=== PATIENT | male | born 1955 | race Caucasian/White ===

== ENCOUNTER 2016-11-13 08:13 | Day surgery (SDC) | payer BC ==
--- NOTE | 2016-11-12 10:25 | PCM.PREANE ---
Preanesthetic Assessment - ANESTHESIA/TRANSFUSION/FAMILY HX Anesthesia/Transfusion History: Prior Anesthesia Family History of Anesthesia Reaction: No - REVIEW OF SYSTEMS Constitutional: Reports: no symptoms ASSOCIATE EDITOR: Reports: no symptoms Respiratory: Reports: no symptoms Cardiovascular: Reports: no symptoms GI: Reports: no symptoms - PHYSICAL ASSESSMENT Height: 1.65 m Weight: 101.151 kg ASA Class: 2 Mental Status: alert & oriented x3 Dentition: Reports: normal dentition Respiratory Status: lungs clear to auscultation bilaterally Cardiovascular Status: regular rate & rhythm, normal S1, S2, no murmur - LAB Values: K+ pending - ALLERGIES Allergies/Adverse Reactions: Allergies Allergy/AdvReac Type Severity Reaction Status Date / Time No Known Allergies Allergy Verified 11/10/16 12:23 - BLOOD Blood Available: No - ANESTHESIA PLAN Preop Beta Evita: No Anesthesia Type Planned: general anesthesia, MAC - ACKNOWLEDGEMENTS Pt an appropriate candidate for the planned anesthesia: Yes Alternatives and risks of anesthesia discussed w pt/guardian: Yes Pt/Guardian understands and agree with anesthesia plan: Yes PreAnesthesia Questionnaire HEENT History: Reports: Other (see below) Other HEENT History: wears glasses/contacts Cardiovascular History: Reports: Hypertension Respiratory History: Reports: Sleep apnea Other Respiratory History: does not use CPAP Gastrointestinal History: Reports: GERD Genitourinary History: Reports: Renal calculus Psychiatric History: Reports: ADHD, Depression Endocrine/Metabolic History: Reports: Obesity/BMI 30+ - Past Surgical History Head Surgeries/Procedures: Reports: None Male Surgical History: Reports: Lithotripsy ([facility]) - SUBSTANCE USE Smoking Status *Q: Never Smoker Recreational Drug Use History: No - HOME MEDS Home Medications: Home Meds Benazepril/Hydrochlorothiazide [Lotensin Hct 20-12.5 mg Tablet] 1 tab PO DAILY 11/10/16 [History] Dextroamphetamine/Amphetamine [Adderall Xr 20 mg Capsule] 20 mg PO DAILY [History] Escitalopram Oxalate 20 mg PO DAILY 11/10/16 [History] Omeprazole 20 mg PO DAILY 11/10/16 [History] Zolpidem Tartrate 10 mg PO BEDTIME PRN 11/10/16 [History] amLODIPine [Norvasc] 5 mg PO DAILY 11/11/16 [History] - CURRENT (IN HOUSE) MEDS Current Meds: Current Medications Lactated Ringer's (Ringers, Lactated) 1,000 mls @ 125 mls/hr IV ASDIRECTED JO Cefazolin Sodium/Dextrose 2 gm (/ Premix) 50 mls @ 100 mls/hr IV ONETIME JO
[~2016-11-13 08:13] MED LIST: Bupivacaine 0.5% 30 ML SDV ONE; Lactated Ringers 1,000 ML IV SCH; ceFAZolin 1 GM Vial ONE; ceFAZolin 2 GM in Premix Bag 1 BAG IV SCH
[2016-11-13] MEDS ORDERED: Lidocaine 2% 5 ML SDV ONE (08:36)
[2016-11-13] MEDS ORDERED: Midazolam 1 MG/ML 2 ML SDV ONE (08:36)
[2016-11-13] MEDS ORDERED: Propofol 200 MG/20 ML SDV ONE (08:36)
[2016-11-13] MEDS ORDERED: fentaNYL 250 MCG/5 ML SDV ONE (08:37)
[2016-11-13] MEDS ORDERED: Rocuronium 10 MG/ML 10 ML Syringe ONE (08:38)
[2016-11-13] MEDS ORDERED: Ondansetron 4 MG/2 ML SDV ONE (08:38)
[2016-11-13] MEDS ORDERED: Neostigmine Methylsulfate 1 MG/ML 5 ML Syringe ONE (08:38)
[2016-11-13] MEDS ORDERED: ePHEDrine 50 MG/ML SDV ONE (10:13)
[2016-11-13] MEDS ORDERED: Ondansetron 4 MG/2 ML SDV IVPUSH PRN (10:52)
[2016-11-13] MEDS ORDERED: Morphine 10 MG/ML Syringe IVPUSH PRN (10:52)
--- NOTE | 2016-11-13 10:57 | PCM.OPNOTE ---
- General Post-Op/Procedure Note Date of Surgery/Procedure: 11/13/16 Operative Procedure(s): Repair incarcerated umbilical hernia w/ 4.3 cm Ventralex mesh Pre Op Diagnosis: Incarcerated umbilical hernia Post-Op Diagnosis: Same Anesthesia Technique: General ET tube (ASA II) Primary Surgeon: Robinson Villalba Management Scientist: Jess Bhat Fluid Replacement, Intraop: 1,000 EBL in mLs: 5 Condition: Good Free Text/Narrative:: Dictation [id number]
[2016-11-13] MEDS ORDERED: Lactated Ringers 1,000 ML IV SCH (11:00)
[2016-11-13] MEDS: fentaNYL 100 MCG/2 ML SDV IVPUSH PRN ×2 (11:25→11:30)
[2016-11-13] MEDS: Acetaminophen/HYDROcodone 325-5 MG Tab PO PRN ×2 (11:49→12:44)
--- NOTE | 2016-11-13 12:21 | OR ---
SURGEON: Robinson Villalba M.D. DATE OF PROCEDURE: 11/13/2016 OPERATION PERFORMED: Repair incarcerated umbilical hernia with 4.3 cm Ventralex mesh. DRENCHER: Dr. Bhat. ANESTHESIA: General endotracheal. ASA CLASSIFICATION: II. PREOPERATIVE DIAGNOSIS: Incarcerated umbilical hernia. POSTOPERATIVE DIAGNOSIS: Incarcerated umbilical hernia. ESTIMATED BLOOD LOSS: 5 mL. INTRAOPERATIVE FLUID REPLACEMENT: 1000 mL of crystalloid. DESCRIPTION OF PROCEDURE: The patient was taken to the operating room and placed on the operating table in the supine position. Time-out was called for appropriate identification of the patient and procedure. Thigh-high TEDs and sequential compression boots were placed. Following satisfactory attainment of general endotracheal anesthesia, the abdomen was prepped with DuraPrep solution and sterile drapes were applied. The skin just to the left of the umbilicus was infiltrated with 0.5% Marcaine solution. The skin incision was made and deepened through the subcutaneous tissue. We were able to circumferentially dissect the hernia sac without getting into this. Once that was accomplished, we did have to extend our fascial incision to total of about 1 cm to completely reduce the hernia sac and its contents. This was easily able to be done. The underlying fascia was then cleared for approximately 2 cm in all directions. A 4.3 cm Ventralex mesh was brought to the operating table and soaked in 1% Ancef solution. This was then placed in an underlay fashion and secured with multiple interrupted horizontal mattress 0 Ethibond sutures. All sutures were placed under direct vision and held with hemostats until the final suture had been placed. The sutures were then secured. The fascia was then reapproximated over the Ventralex mesh without difficulty. This was also done with interrupted 0 Ethibond sutures. Once this was done and sutures have been cut, the patient was given a Valsalva maneuver to 68 cm of water. The repair was solid. Wound was inspected for hemostasis and bleeding sites were electrocoagulated. The subcutaneous tissue was reapproximated with 3-0 Polysorb and the skin edges reapproximated with subcuticular 4-0 Monocryl. A sterile cotton ball was placed into the umbilicus. The wound was dressed with Steri-Strips and Tegaderm pad. Sponge, needle, and instrument counts were all correct. The patient tolerated the procedure well. Following emergence from anesthesia and extubation, he was taken to recovery room in stable condition. ANDJANE / ANSHUL /[id number]
--- NOTE | 2016-11-13 12:45 | PCM.POSTAN ---
POST ANESTHESIA ASSESSMENT - MENTAL STATUS Mental Status: alert, oriented - RESPIRATORY Respiratory Status: respiratory rate WNL, airway patent - CARDIOVASCULAR CV Status: pulse rate WNL, blood pressure stable - GASTROINTESTINAL GI Status: no symptoms - PAIN Pain Score: 5 - POST OP HYDRATION Hydration Status: adequate & stable
[2016-11-13 13:21] VITALS: BP 120/82
--- NOTE | 2016-11-13 14:00 | PCM48HPAN ---
Post Anesthesia Note - EVALUATION WITHIN 48HRS OF ANESTHETIC Vital Signs in Normal Range: Yes Patient Participated in Evaluation: Yes Respiratory Function Stable: Yes Airway Patent: Yes Cardiovascular Function Stable: Yes Hydration Status Stable: Yes Pain Control Satisfactory: Yes Nausea and Vomiting Control Satisfactory: Yes Mental Status Recovered: Yes
== END 2016-11-13 13:27 | disposition home or self-care (01) ==
LOC: MW.SDS 08:13
PROVIDERS: ATTEND Surgery
DX: K42.0 Umbilical hernia with obstruction, without gangrene (principal); I10 Essential (primary) hypertension; K21.9 Gastro-esophageal reflux disease without esophagitis; G47.30 Sleep apnea, unspecified; Z79.899 Other long term (current) drug therapy; Z98.890 Other specified postprocedural states
CPT/HCPCS: 36415; 49587; 84132; A9270; C1781; J0690; J2250; J2405; J2710; J3010; J7120; 00750; J2704